=== PATIENT | female | born 1980 | race Hispanic/Latino ===

== ENCOUNTER 2020-12-25 23:20 | Emergency (ER) | payer SELFPAY ==
[2020-12-25] MEDS ORDERED: methylPREDNISolone Sod Succ/PF 125 MG/2 ML VIAL ONE (23:43)
== END 2020-12-26 00:02 | disposition home or self-care (01) ==
LOC: NAV ERS 23:20
DX: T78.40XA Allergy, unspecified, initial encounter (principal); K21.9 Gastro-esophageal reflux disease without esophagitis; D64.9 Anemia, unspecified; Z79.899 Other long term (current) drug therapy
CPT/HCPCS: 96372; 99282; J2930

== ENCOUNTER 2022-08-09 23:58 | Emergency (ER) | payer OTHER, SELFPAY ==
[2022-08-10] MEDS ORDERED: Sodium Chloride 0.9% 1,000 ML ONE (01:08)
[2022-08-10] MEDS ORDERED: Ondansetron PF 4 MG/2 ML Vial ONE (01:08)
[2022-08-10] MEDS ORDERED: Ketorolac Tromethamine 60 MG/2 ML VIAL ONE (01:08)
[2022-08-10] MEDS ORDERED: cefTRIAXone (ROCEPHIN) 1 GM VIAL ONE (02:20)
[2022-08-10] MEDS ORDERED: methylPREDNISolone Sod Succ 40 MG VIAL ONE (02:20)
== END 2022-08-10 02:35 | disposition home or self-care (01) ==
LOC: NAV ERS 23:58
DX: J01.90 Acute sinusitis, unspecified (principal); K21.9 Gastro-esophageal reflux disease without esophagitis
CPT/HCPCS: 96374; 96375; J0696; J1885; J2405; J2920; J7050

== ENCOUNTER 2024-01-23 19:59 | Emergency (ER) | payer SELFPAY | END 2024-01-23 20:45 | disposition home or self-care (01) | LOC: NAV ERS 19:59 | DX: L29.9 Pruritus, unspecified (principal); E11.9 Type 2 diabetes mellitus without complications; Z79.84 Long term (current) use of oral hypoglycemic drugs | CPT/HCPCS: 99282 ==